=== PATIENT | male | born 1990 | race Asian ===

== ENCOUNTER 2022-11-27 11:03 | Emergency (ER) | payer MEDICAID ==
[~2022-11-27] VITALS: Ht 180.3 cm; Wt 68.0 kg
[2022-11-27 11:39] VITALS: BP_SYST 169
== END 2022-11-27 12:45 | disposition left against medical advice (07) ==
LOC: SED 11:03
DX: F41.9 Anxiety disorder, unspecified (principal); R20.2 Paresthesia of skin; R42 Dizziness and giddiness; Z53.21 Procedure and treatment not carried out due to patient leaving prior to being seen by health care provider